=== PATIENT | female | born 1990 | race Caucasian/White ===

== ENCOUNTER 2019-01-05 20:22 | Emergency (ER) | payer OTHER ==
[~2019-01-05] VITALS: Ht 152.4 cm; Wt 62.6 kg
[2019-01-05 20:29] VITALS: BP 134/83
--- NOTE | 2019-01-05 20:32 | NUR ---
TO LOBBY A/W BED, VIA W/C, JEFF ROLLINS NOTED
--- NOTE | 2019-01-05 21:35 | NUR ---
PT BROUGHT TO BED 12 VIA WHEELCHAIR
--- NOTE | 2019-01-05 21:50 | NUR ---
PT IS A 29 Y/O FEMALE WHO PRESENTS TO THE ED C/O L LEG PAIN S/P DOING TOMMIE DANCE AT 1905 TODAY. PT REPORTS 8/10 ACHING L CALF PAIN THAT DOES NOT RADIATE, NO OBVIOUS TRAUMA/DEFORMITY, TENDERNESS NOTED. PT DENIES CP, SOB, N/V/D. PT AWAKE AND ALERT, RR EVEN/UNLABORED. PT REPOSITIONED FOR COMFORT, BED IN LOWEST POSITION. ER MD DR. PARRA NOTIFIED. WILL CONTINUE TO MONITOR. L
[2019-01-05] MEDS ORDERED: IBUPROFEN 800 MG TAB PO ONE (22:05)
--- NOTE | 2019-01-05 22:28 | NUR ---
PT GIVEN INSTRUCTION ON PROPER USE OF CRUTCHES. CRUTCHES FITTED TO PT HEIGHT WITH 2 INCH GAP BETWEEN ARMPIT AND START OF CRUTCHES, AND HANDLES LOCATED AT PT WRISTS AT REST. PT GIVEN INTRUCTION ON PROPER USE OF CRUTCHES, INCLUDING SITTING TO STANDING, AND WALKING WITH PT DEMONSTRATING SAFE USE FOR APPROXIMATELY 40 FEET. PT STATED SHE FELT CONFIDENT WITH USE.
[2019-01-05 22:35] VITALS: BP 142/89
--- NOTE | 2019-01-05 22:35 | NUR ---
Patient discharged with v/s stable. Written and verbal after care instructions given and explained. Patient alert, oriented and verbalized understanding of instructions. Ambulatory with steady gait. All questions addressed prior to discharge. ID band removed. Patient advised to follow up with PMD. Rx of IBUPROFEN 800MG given. Patient educated on indication of medication including possible reaction and side effects. Opportunity to ask questions provided and answered.
== END 2019-01-05 22:35 | disposition home or self-care (01) ==
LOC: MED 20:22
DX: S86.912A Strain of unspecified muscle(s) and tendon(s) at lower leg level, left leg, initial encounter (principal); X58.XXXA Exposure to other specified factors, initial encounter; Y93.41 Activity, dancing; Y92.89 Other specified places as the place of occurrence of the external cause; Y99.8 Other external cause status
CPT/HCPCS: 73590; 99283